=== PATIENT | male | born 1980 | race Caucasian/White ===

== ENCOUNTER → 2017-06-04 | Outpatient (CLI) | payer OTHER | END | disposition disaster alternative care site (69) | LOC: GAIR 16:42 | DX: G89.11 Acute pain due to trauma (principal); I10 Essential (primary) hypertension; S81.812A Laceration without foreign body, left lower leg, initial encounter; S81.811A Laceration without foreign body, right lower leg, initial encounter; S61.412A Laceration without foreign body of left hand, initial encounter; S61.411A Laceration without foreign body of right hand, initial encounter; S01.81XA Laceration without foreign body of other part of head, initial encounter; S12.100A Unspecified displaced fracture of second cervical vertebra, initial encounter for closed fracture; S12.600A Unspecified displaced fracture of seventh cervical vertebra, initial encounter for closed fracture; K66.1 Hemoperitoneum; V83.5XXA Driver of special industrial vehicle injured in nontraffic accident, initial encounter | CPT/HCPCS: A0422; A0431; A0436; J3010 ==